=== PATIENT | female | born 1950 | race Caucasian/White ===

== ENCOUNTER 2018-06-04 15:45 | Inpatient (IN) | payer BC ==
[~2018-06-04] VITALS: Ht 160 cm; Wt 117.7 kg
[~2018-06-04 15:45] MED LIST: DYAZIDE, MA1 CAPSULE PO; WELCHOL3.75 GM PO; ZANTAC150 MG PO; ZESTRIL10 MG PO
[2018-06-04 17:56] LABS: BASOPHIL (%) 0.3 % (0-1); EOSINOPHIL COUNT 0.9 K/uL (0-0.3); HEMATOCRIT 38.2 % (36.0-46.0); HEMOGLOBIN 13.3 G/DL (11.9-15.5); IMMATURE GRANULOCYTE (%) 0.4 % (0.0-0.7); LYMPHOCYTE (%) 7.4 % (15-42); LYMPHOCYTE COUNT 0.8 K/uL (1.0-2.8); MCH 30.7 PG (29.0-34.0); MCHC 34.8 G/DL (30.0-36.0); MCV 88.2 FL (83-99); MONOCYTE (%) 6.9 % (3-12); MONOCYTE COUNT 0.7 K/uL (0-0.8); NEUTROPHIL COUNT 8.2 K/uL (1.8-6.4); PLATELET COUNT 263 K/uL (156-360); RBC DIS.WIDTH-SD 42.4 % (39-53); RED BLOOD COUNT 4.33 M/uL (3.80-5.20); WHITE BLOOD COUNT 10.6 K/uL (4.1-10.2)
[2018-06-04 18:11] LABS: ALBUMIN 3.4 G/DL (3.2-4.8); CHLORIDE 96 MEQ/L (99-109); POTASSIUM 3.9 MEQ/L (3.7-5.4); SODIUM 131 MEQ/L (136-147)
[2018-06-04 18:17] LABS: ALKALINE PHOSPHATASE 61 IU/L (3-129); ALT (GPT) 10 IU/L (3-49); AST (GOT) 14 IU/L (2-34); GFR ESTIMATE (CALCULATED) 58 mL/min/; GLUCOSE 119 mg/dL (70-99)
[2018-06-04 18:20] LABS: TOTAL BILIRUBIN 0.4 MG/DL (0.0-1.0); UREA NITROGEN (BUN) 26 mg/dL (9-23)
[2018-06-04] MEDS ORDERED: LOVASTATIN10 MG PO (19:03)
[2018-06-04] MEDS ORDERED: MUPIROCIN22 GM TP (19:04)
[2018-06-04] MEDS ORDERED: CALCITRENE60 GM TP (19:05)
[2018-06-04 21:33] VITALS: BP 138/63
[2018-06-04 23:39] VITALS: BP 146/65
[2018-06-05 03:42] VITALS: BP 119/57
[2018-06-05 06:22] LABS: HEMATOCRIT 37.5 % (36.0-46.0); HEMOGLOBIN 12.7 G/DL (11.9-15.5); MCH 30.5 PG (29.0-34.0); MCHC 33.9 G/DL (30.0-36.0); MCV 89.9 FL (83-99); PLATELET COUNT 218 K/uL (156-360); RED BLOOD COUNT 4.17 M/uL (3.80-5.20); WHITE BLOOD COUNT 5.3 K/uL (4.1-10.2)
[2018-06-05 07:40] VITALS: BP 112/79
[2018-06-05 12:00] VITALS: BP 120/68
[2018-06-05 16:04] VITALS: BP 142/75
[2018-06-06 00:12] VITALS: BP 138/76
[2018-06-06 08:00] VITALS: BP 153/77
[2018-06-06 11:44] VITALS: BP 126/73
[2018-06-06 16:12] VITALS: BP 167/70
[2018-06-06 20:00] VITALS: BP 135/78
[2018-06-06 20:09] VITALS: BP 141/65
[2018-06-07 00:07] VITALS: BP 134/80
[2018-06-07 03:53] VITALS: BP 128/76
[2018-06-07 07:50] VITALS: BP 187/74
[2018-06-07 11:10] VITALS: BP 146/72
[2018-06-07 15:48] VITALS: BP 188/79
[2018-06-07 17:42] VITALS: BP 146/88
[2018-06-08 07:56] VITALS: BP 176/82
[2018-06-08 14:50] VITALS: BP 182/82
[2018-06-09 00:14] VITALS: BP 168/80
[2018-06-09 07:09] LABS: HEMATOCRIT 34.8 % (36.0-46.0); HEMOGLOBIN 11.9 G/DL (11.9-15.5); MCH 30.7 PG (29.0-34.0); MCHC 34.2 G/DL (30.0-36.0); MCV 89.9 FL (83-99); PLATELET COUNT 215 K/uL (156-360); RBC DIS.WIDTH-CV 13.2 % (11.8-14.6); RBC DIS.WIDTH-SD 43.6 % (39-53); RED BLOOD COUNT 3.87 M/uL (3.80-5.20); WHITE BLOOD COUNT 8.9 K/uL (4.1-10.2)
[2018-06-09 07:40] LABS: ALBUMIN 3.1 G/DL (3.2-4.8); ALKALINE PHOSPHATASE 47 IU/L (3-129); ALT (GPT) 17 IU/L (3-49); AST (GOT) 11 IU/L (2-34); CHLORIDE 100 MEQ/L (99-109); CREATININE 0.7 MG/DL (0.6-1.3); GFR ESTIMATE (CALCULATED) > 59 mL/min/; GLUCOSE 197 mg/dL (70-99); POTASSIUM 4.6 MEQ/L (3.7-5.4); SODIUM 135 MEQ/L (136-147); TOTAL BILIRUBIN 0.3 MG/DL (0.0-1.0); TOTAL PROTEIN 5.3 G/DL (6.4-8.3); UREA NITROGEN (BUN) 25 mg/dL (9-23)
[2018-06-09 08:36] VITALS: BP 158/92
[2018-06-09 16:34] VITALS: BP 184/85
[2018-06-09 23:44] VITALS: BP 180/83
[2018-06-10 01:45] VITALS: BP 150/66
[2018-06-10 08:10] VITALS: BP 196/90
[2018-06-10 12:38] VITALS: BP 176/80
[2018-06-10 16:53] VITALS: BP 161/79
[2018-06-10 21:15] VITALS: BP 143/83
[2018-06-11] VITALS: BP 151/74
[2018-06-11 07:18] LABS: BASOPHIL (%) 0.1 % (0-1); EOSINOPHIL (%) 0 % (0-5); HEMATOCRIT 39.2 % (36.0-46.0); HEMOGLOBIN 13.1 G/DL (11.9-15.5); LYMPHOCYTE (%) 8.2 % (15-42); LYMPHOCYTE COUNT 0.8 K/uL (1.0-2.8); MCH 30.2 PG (29.0-34.0); MCHC 33.4 G/DL (30.0-36.0); MCV 90.3 FL (83-99); MONOCYTE COUNT 0.4 K/uL (0-0.8); NEUTROPHIL (%) 85.7 % (45-76); NEUTROPHIL COUNT 8.7 K/uL (1.8-6.4); PLATELET COUNT 238 K/uL (156-360); RBC DIS.WIDTH-CV 13.2 % (11.8-14.6); RBC DIS.WIDTH-SD 43.5 % (39-53); RED BLOOD COUNT 4.34 M/uL (3.80-5.20); WHITE BLOOD COUNT 10.2 K/uL (4.1-10.2)
[2018-06-11 07:41] LABS: CHLORIDE 100 MEQ/L (99-109); CREATININE 0.7 MG/DL (0.6-1.3); GFR ESTIMATE (CALCULATED) > 59 mL/min/; GLUCOSE 190 mg/dL (70-99); SODIUM 137 MEQ/L (136-147); UREA NITROGEN (BUN) 20 mg/dL (9-23)
[2018-06-11 07:43] VITALS: BP 185/90
[2018-06-11 11:25] VITALS: BP 120/56
[2018-06-11] MEDS ORDERED: HYDROXYZINE PAM25 MG PO (14:47)
[2018-06-11] MEDS ORDERED: PREDNISONE10 MG PO (14:47)
[2018-06-11] MEDS ORDERED: RISPERIDONE0.5 MG PO (14:47)
[2018-06-11] MEDS ORDERED: KENALOG,ARISTOC15 G3 TP (14:47)
[2018-06-11] MEDS ORDERED: LISINOPRIL20 MG PO (14:47)
[2018-06-11] MEDS ORDERED: CLONIDINE HCL0.1 MG PO (14:47)
[2018-06-11 15:21] VITALS: BP 157/74
[2018-06-11 17:01] LABS: FOLIC ACID (FOLATE) 5.6 NG/ML (5.0-22.0)
== END 2018-06-11 15:37 | disposition home or self-care (01) | DRG 596 ==
LOC: EME 15:45 → 2EAST 18:55 → EDOF 18:55 → ENRESERV 19:32 → 2EAST 20:57
PROVIDERS: Emergency Medicine; Internal Medicine; Psychiatry & Neurology Psychiatry
DX: L12.0 Bullous pemphigoid (principal); Z68.42 Body mass index [BMI] 45.0-49.9, adult; L03.90 Cellulitis, unspecified; E66.9 Obesity, unspecified; E53.8 Deficiency of other specified B group vitamins; F20.9 Schizophrenia, unspecified; F32.9 Major depressive disorder, single episode, unspecified; E78.5 Hyperlipidemia, unspecified; I10 Essential (primary) hypertension; I95.9 Hypotension, unspecified; K21.9 Gastro-esophageal reflux disease without esophagitis; F41.9 Anxiety disorder, unspecified; E87.1 Hypo-osmolality and hyponatremia
CPT/HCPCS: 36415; 80048; 80053; 80061; 81003; 82607; 82746; 83605; 85025; 85027; 87040; 87070; 87075; 87076; 87205; 99281; 99285; J0360; J1650; J2920; J2930; J3420; J7030; J7050; J7512; Q0177